=== PATIENT | female | born 1985 | race Caucasian/White ===

== ENCOUNTER 2019-04-15 16:24 | Emergency (ER) | payer MEDICAID ==
[~2019-04-15] VITALS: Ht 149.9 cm; Wt 108.5 kg
[~2019-04-15 16:24] MED LIST: ALBU8.5H8 IH; HYDR-4383 PO
--- NOTE | 2019-04-15 16:47 | NUR ---
provider at bedside to parvin pt
[2019-04-15] MEDS ORDERED: normal saline 1000ML IV soln IVB ONE (17:05)
--- NOTE | 2019-04-15 17:05 | NUR ---
pt aware UA needed, unable to go at this time, also gave pt ice water
[2019-04-15 17:34] LABS: CLARITY,URINE CLEAR (Clear); COLOR,URINE YELLOW (Yellow); GLUCOSE, URINE NEGATIVE (Neg); KETONES,URINE NEGATIVE (Neg); LEUKOCYTE ESTERASE ,URINE TRACE (Neg); NITRITES, URINE NEGATIVE (Neg); OCCULT BLOOD,URINE NEGATIVE (Neg); PH,URINE 7.5 (4.8-8.0); PROTEIN,URINE NEGATIVE (Neg); UROBILINOGEN,URINE 0.2 E.U/dL (0.2-1.0)
[2019-04-15 17:35] LABS: UA COLLECTION TYPE CLN CATCH MIDSTREAM; URINE HCG NEGATIVE (NEG)
[2019-04-15 17:41] LABS: BASOPHILS # (AUTO) 0.1 X10'3 (0-0.2); BASOPHILS % (AUTO) 0.7 % (0-1); EOSINOPHILS # (AUTO) 0.2 X10'3 (0-0.9); EOSINOPHILS % (AUTO) 2.1 % (0-6); HEMATOCRIT 43.9 % (35.0-45.0); HEMOGLOBIN 15.2 g/dl (12.0-16.0); LYMPHOCYTES # (AUTO) 2.5 X10'3 (1.1-4.8); LYMPHOCYTES % (AUTO) 20.9 % (21-51); MEAN CORPUSCULAR HEMOGLOBIN 29.5 PG (27.0-31.0); MEAN CORPUSCULAR HGB CONC 34.6 g/dL (33.0-36.5); MEAN CORPUSCULAR VOLUME 85.4 FL (78-98); MEAN PLATELET VOLUME 8.6 FL (7.4-10.4); MONOCYTES # (AUTO) 0.4 X10'3 (0-0.9); MONOCYTES % (AUTO) 3.6 % (2-12); NEUTROPHILS # (AUTO) 8.6 X10'3 (1.8-7.7); NEUTROPHILS % (AUTO) 72.7 % (42-75); PLATELET COUNT 383 X10'3 (140-440); RED BLOOD COUNT 5.14 X10'6 (4.20-5.60); RED CELL DISTRIBUTION WIDTH 13.5 % (11.5-14.5); WHITE BLOOD COUNT 11.8 X10'3 (4.5-11.0)
[2019-04-15 17:47] LABS: PARTIAL THROMBOPLASTIN TIME 28 SECONDS (22-32)
[2019-04-15 17:48] LABS: SQUAMOUS EPITHELIAL CELL,UR MODERATE /LPF (FEW)
[2019-04-15 17:49] LABS: ALANINE AMINOTRANSFERASE 24 U/L (12-78); ALKALINE PHOSPHATASE 95 IU/L (46-116); ANION GAP 6 (8-16); ASPARTATE AMINO TRANSFERASE 16 U/L (10-37); BILIRUBIN,TOTAL 0.3 MG/DL (0.1-1.0); BLOOD UREA NITROGEN 8 MG/DL (7-18); BUN/CREATININE RATIO 9.5 (6.6-38.0); C-REACTIVE PROTEIN 0.63 MG/DL (0.0-0.5); CALCIUM 8.8 MG/DL (8.5-10.1); CHLORIDE 103 MMOL/L (99-107); CREATININE 0.84 MG/DL (0.40-0.90); GLUCOSE 89 MG/DL (70-104); LIPASE 86 U/L (73-393); POTASSIUM 3.6 MMOL/L (3.5-5.1); SODIUM 139 MMOL/L (135-145); TOTAL CARBON DIOXIDE 30.3 MMOL/L (24-32); TOTAL PROTEIN 8.2 G/DL (6.4-8.2); eGFR 78 ML/MIN
[2019-04-15 17:50] LABS: BACTERIA,URINE 1+ /HPF (Neg); RBC,URINE 0-2 /HPF (0-2)
--- NOTE | 2019-04-15 17:55 | NUR ---
pt to CT
[2019-04-15] MEDS ORDERED: morphine 4 MG/ML inj SYRINge IV ONE (18:40)
[2019-04-15] MEDS ORDERED: ondansetron/PF 4mg/2ml inj IV ONE (18:40)
[2019-04-15] MEDS: normal saline 1000ML IV soln IVB ONE ×2 (18:53→19:29)
[2019-04-15] MEDS ORDERED: CEPH500C5 PO (19:36)
[2019-04-15] MEDS ORDERED: cephalexin 250mg capsule PO STA (19:36)
[2019-04-15 20:00] VITALS: BP 150/89
== END 2019-04-15 20:02 | disposition home or self-care (01) ==
LOC: ER 16:24
DX: N39.0 Urinary tract infection, site not specified (principal); J06.9 Acute upper respiratory infection, unspecified; J45.909 Unspecified asthma, uncomplicated; N20.0 Calculus of kidney; G89.29 Other chronic pain; F10.99 Alcohol use, unspecified with unspecified alcohol-induced disorder; R79.1 Abnormal coagulation profile; Z79.899 Other long term (current) drug therapy; Y90.9 Presence of alcohol in blood, level not specified
CPT/HCPCS: 36415; 71045; 74176; 80053; 81001; 81025; 83605; 83690; 84145; 85025; 85610; 85651; 85730; 86140; 87077; 87088; 87186; 96374; 96375; 99284; J2270; J2405; J7030

== ENCOUNTER 2019-07-21 12:31 | Emergency (ER) | payer MEDICAID ==
[~2019-07-21] VITALS: Ht 149.9 cm; Wt 108.0 kg
[2019-07-21] MEDS ORDERED: morphine 4 MG/ML inj SYRINge IV ONE (15:10)
[2019-07-21] MEDS ORDERED: ketorolac tromethamine 15mg/ml inj. IV ONE (15:10)
[2019-07-21] MEDS ORDERED: normal saline 1000ml 1,000 ML IV ONE (15:10)
[2019-07-21 15:38] LABS: CLARITY,URINE CLEAR (Clear); COLOR,URINE YELLOW (Yellow); GLUCOSE, URINE NEGATIVE (Neg); KETONES,URINE NEGATIVE (Neg); LEUKOCYTE ESTERASE ,URINE NEGATIVE (Neg); NITRITES, URINE NEGATIVE (Neg); OCCULT BLOOD,URINE NEGATIVE (Neg); PROTEIN,URINE NEGATIVE (Neg); UA COLLECTION TYPE CLN CATCH MIDSTREAM; UROBILINOGEN,URINE 0.2 E.U/dL (0.2-1.0)
[2019-07-21 17:14] LABS: BASOPHILS % (AUTO) 0.3 % (0-1); EOSINOPHILS # (AUTO) 0.3 X10'3 (0-0.9); EOSINOPHILS % (AUTO) 2.2 % (0-6); HEMATOCRIT 41.7 % (35.0-45.0); HEMOGLOBIN 13.9 g/dl (12.0-16.0); LYMPHOCYTES % (AUTO) 16.3 % (21-51); MEAN CORPUSCULAR HEMOGLOBIN 29.2 PG (27.0-31.0); MEAN CORPUSCULAR HGB CONC 33.4 g/dL (33.0-36.5); MEAN CORPUSCULAR VOLUME 87.4 FL (78-98); MEAN PLATELET VOLUME 8.5 FL (7.4-10.4); MONOCYTES # (AUTO) 0.5 X10'3 (0-0.9); MONOCYTES % (AUTO) 3.8 % (2-12); NEUTROPHILS # (AUTO) 9.6 X10'3 (1.8-7.7); NEUTROPHILS % (AUTO) 77.4 % (42-75); PLATELET COUNT 292 X10'3 (140-440); RED BLOOD COUNT 4.78 X10'6 (4.20-5.60); RED CELL DISTRIBUTION WIDTH 14.8 % (11.5-14.5); WHITE BLOOD COUNT 12.4 X10'3 (4.5-11.0)
[2019-07-21 17:22] VITALS: BP 148/79
[2019-07-21 17:25] LABS: ALANINE AMINOTRANSFERASE 23 U/L (12-78); ALBUMIN 3.2 G/DL (3.4-5.0); ALBUMIN/GLOBULIN RATIO 0.9 (1.1-1.5); ALKALINE PHOSPHATASE 81 IU/L (46-116); ANION GAP 5 (8-16); ASPARTATE AMINO TRANSFERASE 14 U/L (10-37); BILIRUBIN,TOTAL 0.3 MG/DL (0.1-1.0); BLOOD UREA NITROGEN 10 MG/DL (7-18); BUN/CREATININE RATIO 13.5 (6.6-38.0); CALCIUM 8.3 MG/DL (8.5-10.1); CHLORIDE 106 MMOL/L (99-107); CREATININE 0.74 MG/DL (0.40-0.90); GLUCOSE 85 MG/DL (70-104); LIPASE 64 U/L (73-393); SODIUM 138 MMOL/L (135-145); TOTAL PROTEIN 6.9 G/DL (6.4-8.2); eGFR 90 ML/MIN
[2019-07-21 17:50] LABS: BETA HCG,QUANTITATIVE < 1.0 mIU/ml
[2019-07-21] MEDS ORDERED: HYDR-3965 PO (18:54)
== END 2019-07-21 19:05 | disposition home or self-care (01) ==
LOC: ER 12:32
DX: N20.0 Calculus of kidney (principal); J45.909 Unspecified asthma, uncomplicated; G89.29 Other chronic pain; Z79.899 Other long term (current) drug therapy
CPT/HCPCS: 36415; 74176; 80053; 81003; 83690; 84702; 85025; 96374; 99284; J1885; J7030

== ENCOUNTER 2020-12-07 19:03 | Emergency (ER) | payer MEDICAID ==
[~2020-12-07] VITALS: Ht 152.4 cm; Wt 100.0 kg
[2020-12-07 19:22] VITALS: BP 149/83
[2020-12-07 19:53] LABS: URINE HCG NEGATIVE (NEG)
[2020-12-07 19:58] LABS: CLARITY,URINE CLOUDY (Clear); COLOR,URINE YELLOW (Yellow); GLUCOSE, URINE NEGATIVE (Neg); KETONES,URINE NEGATIVE (Neg); LEUKOCYTE ESTERASE ,URINE MODERATE (Neg); NITRITES, URINE NEGATIVE (Neg); OCCULT BLOOD,URINE MODERATE (Neg); PROTEIN,URINE TRACE mg/dl (Neg)
[2020-12-07 20:00] LABS: UA COLLECTION TYPE CLN CATCH MIDSTREAM
[2020-12-07 20:09] LABS: BACTERIA,URINE FEW /HPF (Neg); SQUAMOUS EPITHELIAL CELL,UR FEW /LPF (FEW); WBC,URINE 50-100 /HPF (0-4)
[2020-12-07] MEDS ORDERED: CEFD300C3 PO (20:48)
--- NOTE | 2020-12-07 21:09 | NUR ---
pt seen and assessed by provider
== END 2020-12-07 21:09 | disposition home or self-care (01) ==
LOC: ER 19:04
DX: N39.0 Urinary tract infection, site not specified (principal); R10.11 Right upper quadrant pain; R39.11 Hesitancy of micturition; J45.909 Unspecified asthma, uncomplicated; G89.29 Other chronic pain; Z87.442 Personal history of urinary calculi; Z87.01 Personal history of pneumonia (recurrent); Z72.89 Other problems related to lifestyle; Z79.2 Long term (current) use of antibiotics
CPT/HCPCS: 81001; 81025; 87088; 99283

== ENCOUNTER 2021-09-21 19:30 | Emergency (ER) | payer MEDICAID ==
[~2021-09-21] VITALS: Ht 152.4 cm; Wt 95.5 kg
[~2021-09-21 19:30] MED LIST changes: +ALBU8.5H17 IH; -ALBU8.5H8 IH
[2021-09-21 19:53] VITALS: BP 163/113
[2021-09-21] MEDS ORDERED: ipratropium/albuterol 3ml nebule NEB ONE (20:00)
[2021-09-21] MEDS ORDERED: PRED20TA PO (20:43)
[2021-09-21] MEDS ORDERED: ALBU6.7H9 INH (20:43)
== END 2021-09-21 21:06 | disposition home or self-care (01) ==
LOC: ER 19:30
DX: J45.901 Unspecified asthma with (acute) exacerbation (principal); R06.02 Shortness of breath; G89.29 Other chronic pain; Z87.01 Personal history of pneumonia (recurrent); Z87.442 Personal history of urinary calculi; Z72.89 Other problems related to lifestyle; Z79.899 Other long term (current) drug therapy
CPT/HCPCS: 71045; 94640; 94760; 99283